=== PATIENT | female | born 1945 | race Caucasian/White ===

== ENCOUNTER 2019-04-16 15:10 | Emergency (ER) | payer OTHER ==
[~2019-04-16] VITALS: Ht 160 cm; Wt 64.4 kg
[2019-04-16] MEDS ORDERED: RISEDRONATE SOD35 M1 PO (15:53)
[2019-04-16] MEDS ORDERED: AMLODIPINE BESYL5 MG PO (15:54)
[2019-04-16] MEDS ORDERED: LOSARTAN POTAS100 MG PO (15:54)
[2019-04-16] MEDS ORDERED: LIPITOR40 M1 PO (15:54)
[2019-04-16] MEDS ORDERED: TEGRETOL XR200 MG PO (15:54)
== END 2019-04-16 18:29 | disposition home or self-care (01) ==
LOC: ER 15:10
DX: G50.0 Trigeminal neuralgia (principal)